=== PATIENT | male | born 1935 | race Caucasian/White ===

== ENCOUNTER 2020-09-04 07:42 | Inpatient (IN) | payer OTHER ==
[2020-09-04 08:02] VITALS: BMI 27.1
[2020-09-04 10:05] LABS: INR 1.54 (0.83-1.09); PROTHROMBIN TIME (PATIENT) 18.4 SEC (9.7-13.0)
[2020-09-04 10:08] LABS: ACTIVATED PTT 38.1 SECONDS (25.2-36.5)
[2020-09-04 10:19] LABS: ALBUMIN 3.2 g/dl (3.4-5.0); CALCIUM 9.1 mg/dL (8.5-10.1)
[2020-09-04 10:22] LABS: BILIRUBIN,DIRECT 10.3 mg/dL (0.0-0.2); CREATININE 0.9 mg/dL (0.55-1.3)
[2020-09-04 10:24] LABS: BILIRUBIN,TOTAL 12.8 mg/dL (0.2-1); TOT PROT 6.5 g/dl (6.4-8.2)
[2020-09-04 10:52] LABS: BASO % 1.2 % (0-2.0); EOS % 1.4 % (0-4.5); HEMATOCRIT 33.1 % (35.4-49); HEMOGLOBIN 11.6 GM/dL (11.7-16.9); MCH 29.7 pg (25.7-33.7); MEAN CELL VOLUME 84.9 fl (80-96); MEAN PLT VOLUME 9.3 fl (7.5-11.1); MONO % 9.7 % (3.8-10.2); NEUT % 65.7 % (42.8-82.8); PLATELET COUNT 268 K/MM3 (134-434); RDW 16.4 % (11.9-15.9); WHITE BLOOD COUNT 7.7 K/mm3 (4.0-10.0)
[2020-09-04 11:34] LABS: HIV INTERPRETATION NEGATIVE (NEGATIVE)
[2020-09-04 19:45] VITALS: BP 139/70; PULSE 88; TEMP 98.3
[2020-09-04] MEDS ORDERED: METOPROLOL TARTRATE 25 MG TABLET (FP) PO SCH (22:00)
[2020-09-04] MEDS ORDERED: LISINOPRIL 5 MG TABLET PO SCH (22:00)
[2020-09-04] MEDS ORDERED: ENOXAPARIN NA (PORCINE) 60 MG/0.6 ML DISP.SYRIN SQ SCH (22:00)
[2020-09-05] MEDS ORDERED: amLODIPine BESYLATE 5 MG TABLET (FP) PO SCH (10:00)
[2020-09-05] MEDS ORDERED: PANTOPRAZOLE 20 MG TABLET PO SCH (10:00)
== END 2020-09-04 21:16 | disposition short-term general hospital (02) | DRG 445 ==
LOC: JER 07:42 → JERBED 13:05
PROVIDERS: ADMIT Internal Medicine; ATTEND Internal Medicine
DX: K83.9 Disease of biliary tract, unspecified (principal); R17 Unspecified jaundice; C79.51 Secondary malignant neoplasm of bone; I10 Essential (primary) hypertension; E11.9 Type 2 diabetes mellitus without complications; E78.5 Hyperlipidemia, unspecified; I48.91 Unspecified atrial fibrillation; C61 Malignant neoplasm of prostate
CPT/HCPCS: 36415; 74178-TC; 76705-TC; 80053; 80074; 82248; 82378; 82962; 83690; 85025; 85610; 85730; 86850; 86900; 86901; 87389; 93005; 93010; 99285-25; C9803; Q9967; U0003; U0005